=== PATIENT | female | born 1955 | race Caucasian/White ===

== ENCOUNTER → 2020-08-01 08:16 | Outpatient (CLI) | payer MEDICARE, OTHER, SELFPAY ==
[2020-08-01 19:22] LABS: SARS-CoV-2 RNA PCR Negative
== END ==
PROVIDERS: Visit Provider Obstetrics & Gynecology
DX: Z01.812 Encounter for preprocedural laboratory examination (principal); Z20.822 Contact with and (suspected) exposure to COVID-19
CPT/HCPCS: C9803; U0003; U0005

== ENCOUNTER 2020-08-01 09:27 | Outpatient (CLI) | payer MEDICARE, OTHER, SELFPAY ==
[2020-08-01 10:02] LABS: Hematocrit 39.5 % (37.0-47.0); Hemoglobin 12.9 g/dL (12.0-15.0)
[2020-08-01 10:11] LABS: Anion Gap 4 mmol/L (8-16); Blood Urea Nitrogen 20 mg/dL (7-17); Calcium 9.1 mg/dL (8.4-10.2); Carbon Dioxide 29 mmol/L (22-30); Chloride 104 mmol/L (98-107); Estimated Glomerular Filt Rate > 60; Glucose 92 mg/dL (65-105); Potassium 3.8 mmol/L (3.4-5.0); Sodium 137 mmol/L (137-145)
== END 2020-08-01 09:28 | disposition home or self-care (01) ==
LOC: ANHSURGERY 09:31
PROVIDERS: Anesthesiology; PCP Internal Medicine; Visit Provider Obstetrics & Gynecology
DX: Z01.812 Encounter for preprocedural laboratory examination (principal); N95.0 Postmenopausal bleeding; I10 Essential (primary) hypertension
CPT/HCPCS: 36415; 80048; 85014; 85018; C9803; U0003; U0005

== ENCOUNTER 2020-08-04 01:43 | Day surgery (SDC) | payer MEDICARE, OTHER, SELFPAY ==
[2020-07-28 14:52] VITALS: BMI 29.2
--- NOTE | 2020-07-29 13:21 | PM.IMHP ---
H&P: HPI History of Present Illness Date/Time: 07/29/20 13:21 a 75-year-old 1 who is postmenopausal admitted for hysteroscopy and dilatation and curettage. She had some postmenopausal bleeding. She received the [employer] handout entitled hysteroscopy as well as dilatation and curettage. She had all questions answered. She asked to proceed Chief Complaint: postmenopausal bleeding Review of Systems Review of Systems: All systems reviewed & are unremarkable except as noted in HPI and below PMFSH Social History Social History Smoking status: Never smoker Alcohol intake: current Drinks per week: 3 Spiritual care concerns: No Meds Home Medications and Allergies Home Medications Medication Instructions Recorded Confirmed Type cholecalciferol (vitamin D3) 50 mcg PO DAILY 07/28/20 07/28/20 History fexofenadine-pseudoephedrine 1 tablet PO QAM 07/28/20 07/28/20 History [Maria L-D 24 Hour] hydrochlorothiazide 12.5 mg PO DAILY 07/28/20 07/28/20 History magnesium 250 mg PO DAILY 07/28/20 07/28/20 History omeprazole 20 mg PO DAILY 07/28/20 07/28/20 History valsartan 160 mg PO DAILY 07/28/20 07/28/20 History venlafaxine 75 mg PO QAM 07/28/20 07/28/20 History Allergies Allergy/AdvReac Type Severity Reaction Status Date / Time latex Allergy Rash Verified 07/28/20 14:34 Penicillins Allergy Rash Verified 07/28/20 14:33 Sulfa (Sulfonamide Allergy Nausea Verified 07/28/20 14:34 Antibiotics) Exam Const: General: no acute distress Eyes: General: appearance normal, both eyes and all related structures Neck: Neck: supple and no JVD Thyroid: thyroid normal Resp: Effort & Inspection: normal respiratory effort Auscultation: clear to auscultation bilaterally Cardio: Rate: regular rate Rhythm: regular rhythm GI: Inspection: non-distended GI Palp: Yes Soft to palpation, No Tenderness to palpation present (GI) and No Guarding due to palpation present (GI) Auscultation: normal bowel sounds : External Female Exam: normal external appearance Speculum Exam - Vagina: normal appearance of the vagina Speculum Exam - Cervix: normal appearance of the cervix Bimanual exam- vagina & uterus: uterine size normal Bimanual Exam- Adnexa, other: normal adnexae Skin: General skin exam: no rashes or lesions noted Extrem: General: normal to inspection and no edema Psych: Mental Status: mental status grossly normal Affect: normal affect Assessment and Plan Additional Plan impression: Postmenopausal bleeding Plan: Hysteroscopy / dilatation and curettage
--- NOTE | 2020-08-04 06:36 | WPDHPUPDATE1 ---
History and Physical Update Update Date/Time: 08/04/20 06:36 History and Physical has been reviewed, including an updated exam of the patient. There are NO changes in the patient's condition. Risks, benefits, and alternatives have been discussed and questions answered. Patient agrees to proceed with procedure.
[2020-08-04 07:35] VITALS: BP 119/84; PULSE 66; RESP 20; TEMP 36.3; O2SAT 98
--- NOTE | 2020-08-04 07:52 | WPDANESEPPF ---
Anes - Initial Pre Proc Eval Procedure: Operation Date: 08/04/20 09:15 Proposed Procedures p Hysteroscopy Dilation and Curettage - Charles Bae MD Date/Time: 08/04/20 07:52 Surgeon: Charles Bae MD Pre Op Diagnosis: postmenopausal bleeding Patient Data Age: 64 Gender: F Height: 1.63 m Weight: 77.2 kg Allergies Allergy/AdvReac Type Severity Reaction Status Date / Time latex AdvReac Mild Rash Verified 08/04/20 07:33 Penicillins AdvReac Mild RASH A Verified 08/04/20 07:33 CHILD Sulfa (Sulfonamide AdvReac Mild Nausea Verified 08/04/20 07:33 Antibiotics) Home Medications Medication Instructions Recorded Confirmed Type cholecalciferol (vitamin D3) 50 mcg PO DAILY 07/28/20 08/04/20 History fexofenadine-pseudoephedrine 1 tablet PO QAM 07/28/20 08/04/20 History [Maria L-D 24 Hour] hydrochlorothiazide 12.5 mg PO DAILY 07/28/20 08/04/20 History magnesium 250 mg PO DAILY 07/28/20 08/04/20 History omeprazole 20 mg PO DAILY 07/28/20 08/04/20 History valsartan 160 mg PO DAILY 07/28/20 08/04/20 History venlafaxine 75 mg PO QAM 07/28/20 08/04/20 History hydrocodone-acetaminophen 1 tablet PO Q4H PRN #20 tablet 08/04/20 Rx Patient hx anesthesia problems: none Family hx anesthesia problems: none PMFSH Past Medical History Medical History (Updated 08/04/20 @ 08:23 by Luca Aquino DO) Enlarged aorta thoracic - monitoring - currently 4.5 cm GERD (gastroesophageal reflux disease) Hypertension PONV (postoperative nausea and vomiting) Surgical History Surgical History (Updated 08/04/20 @ 07:53 by Luca Aquino DO) History of cholecystectomy S/P Liliana fundoplication (with gastrostomy tube placement) Social History Social History Smoking status: Never smoker Alcohol intake: current Drinks per week: 3 Living arrangements: alone Spiritual care concerns: No Anes - Eval Final PreProcedure Day of Procedure 08/04/20 07:52 Patient weight: overweight Heart: regular rate and rhythm Lungs: clear to auscultation and normal air movement Airway: Mallampati scale class III Neurological: alert and oriented Last oral intake: >/= 8 hours ASA classification: III Emergent: no Anesthetic plan: proceed Anesthesia type and monitoring: general GIVS and standard monitoring Informed Consent: The patient's anesthetic plan and its attendant risks and benefits were discussed with the patient/family/POA. Questions were solicited and answers provided to the satisfaction of the patient/family/POA.
[2020-08-04] MEDS: ACETAMINOPHEN 500 MG TABLET 1000 MG PO (07:58)
[2020-08-04] MEDS: LACTATED RINGERS 1,000 ML 30 ML IV CONT (08:00)
[2020-08-04] MEDS: KETOROLAC 30 MG/ML VIAL (*BKC) IV PUSH (09:37)
--- NOTE | 2020-08-04 09:38 | PM.PROC ---
Procedure Note - Detailed Date of procedure: 08/04/20 Pre-op diagnosis: postmenopausal bleeding Surgeon: Charles Bae MD Postop diagnosis: Postmenopausal bleeding Procedure: Hysteroscopy/polypectomy/dilatation curettage Anesthesia: IV sedation and paracervical block EBL: 5cc Findings: Benign-appearing endometrium with benign endometrial polyp Complications: None Description of procedure: The patient was prepped draped in the normal sterile fashion placed in the dorsal lithotomy position. Under excellent IV sedation weighted speculum was placed in posterior fornix of vagina. Anterior lip of the cervix was grasped with a single-tooth tenaculum and 2.5cc of 1% xylocaine anesthesia placed at 2, 4, 8, 10:00 a.m. on the cervix. Uterus sounded to 8cm. Serial dilatation with fragmented dilators performed followed by passage of the 5mm visualizing hysteroscope. Normal saline was used as visualizing medium. Some benign-appearing polypoid lesions were seen and these were removed piecemeal with polyp forceps. The uterus was then scraped over the entire 360? until a good grating sound was heard. When no further tissue could be obtained the it procedure was terminated. All sponge, needle, instrument counts were correct. There were no immediate complications
[2020-08-04 09:43] VITALS: BP 143/94; PULSE 80; RESP 16; O2SAT 94
[2020-08-04 10:10] VITALS: BP 123/78; PULSE 68; RESP 16; O2SAT 97
[2020-08-04] MEDS: oxyCODONE HCL (*CRX) 5 MG TAB IR PO (10:24)
[2020-08-04 10:40] VITALS: BP 130/76; PULSE 60; RESP 16
[2020-08-04 11:00] VITALS: BP 107/66; PULSE 66; RESP 16
== END 2020-08-04 11:07 | disposition home or self-care (01) ==
PROVIDERS: PCP Internal Medicine; Visit Provider Obstetrics & Gynecology
PROC: 0U5B8ZZ Destruction of Endometrium, Via Natural or Artificial Opening Endoscopic (ICD-10-PCS; CPT 58563; principal; 2020-08-04 09:15)
DX: N95.0 Postmenopausal bleeding (principal); N84.0 Polyp of corpus uteri; I10 Essential (primary) hypertension; K21.9 Gastro-esophageal reflux disease without esophagitis; I71.2 Thoracic aortic aneurysm, without rupture
CPT/HCPCS: 58558; 88305; A9270; J1885; J2250; J2405; J2704; J3010; J7030; J7120

== ENCOUNTER 2020-11-25 13:59 | Outpatient (CLI) | payer MEDICARE, OTHER, SELFPAY ==
--- NOTE | ~2020-11-25 | CT_ITS ---
EXAMINATION: CT abdomen pelvis wo/w con DATE: 11/25/2020 14:48 INDICATION: Left kidney mass, hematuria TECHNIQUE: Computed tomography (CT) of the abdomen was performed without intravenous contrast. CT of the abdomen and pelvis was then performed with a total of 100 mL Omnipaque 350 intravenous contrast. The dose-length product (DLP) was 967.12 mGy-cm. Automated exposure control and iterative reconstruct ion technique were employed. COMPARISON: None FINDINGS: Minimal dependent atelectasis is present in the lung bases. The heart size is normal. There is dilation of the ascending aorta. Calcified coronary artery atherosclerosis is noted. The gallblad xander is surgically absent. There is mild enlargement of the common bile duct and central intrahepatic ducts which is likely due to post cholecystectomy state. The liver, spleen, pancreas, and adrenal gla nds are normal. The left kidney mass is identified. There is a 10 mm round mass in the right kidney l ower pole which is intermediate attenuation on postcontrast images. A smaller 9 mm lesion is seen in the right mid kidney, also intermediate attenuation after contrast administration. No stones are iden tified in the kidneys, ureters, or bladder. There is no hydronephrosis or hydroureter. There is a lar ge diverticulum of the right posterolateral bladder wall. No pathologically enlarged abdominal or pel shweta lymph nodes are identified. There is no free intraperitoneal gas or evidence of bowel obstruction . There is severe lumbar spondylosis. IMPRESSION: 1. Small right kidney masses which could reflect proteinaceous cysts versus small neoplasms. Follow-u p CT or MRI without and with contrast in 6-12 months is recommended. Reviewed, dictated and finalized at location A. IMPRESSION: 1. Small right kidney masses which could reflect proteinaceous cysts versus sma ll neoplasms. Follow-up CT or MRI without and with contrast in 6-12 months is r ecommended.
--- NOTE | ~2020-11-25 | XR_ITS ---
EXAMINATION: XR abdomen/kub 1V INDICATION: Left kidney stone TECHNIQUE: Supine views of the abdomen were obtained on 2 radiographs. COMPARISON: None FINDINGS: No urolithiasis identified. There is dextroscoliosis and severe spondylosis of the lumbar s pine. Cholecystectomy clips are noted. The bowel gas pattern is normal. IMPRESSION: 1. No urolithiasis identified. Reviewed, dictated and finalized at location A.
[2020-11-25 14:38] LABS: Estimated Glomerular Filt Rate > 60
== END 2020-11-25 14:00 | disposition home or self-care (01) ==
PROVIDERS: PCP Internal Medicine; Visit Provider Nurse Practitioner Adult Health
DX: N28.89 Other specified disorders of kidney and ureter (principal)
CPT/HCPCS: 74018; 74178; Q9967

== ENCOUNTER 2021-05-22 09:31 | Outpatient (CLI) | payer MEDICARE, OTHER, SELFPAY ==
--- NOTE | ~2021-05-22 | MR_ITS ---
EXAMINATION: MR abdomen wo/w con DATE: 05/22/2021 11:00 INDICATION: Left kidney mass. Hematuria. TECHNIQUE: Magnetic resonance imaging (MRI) of the abdomen was performed without and with 15 mL Multi Jn intravenous contrast. Sequences included coronal T2-weighted FS FSE, coronal and axial FIESTA F S, coronal LAVA-flex, axial LAVA, axial T2-weighted FSE, axial T1-weighted dual-echo FSPGR, axial STI R FSE, and axial DWI. Postcontrast sequences included coronal LAVA-flex and a time course of axial LA VA. COMPARISON: CT abdomen and pelvis 11/25/2020 FINDINGS: The liver is normal. The gallbladder is absent. The spleen, pancreas, and adrenal glands are normal. There are cysts in the kidneys measuring up to 12 mm on the right. There is a small sliding hiatal he rnia. There are no dilated loops of bowel. There are no pathologically enlarged lymph nodes. There is no free intraperitoneal fluid. Again seen are foci of old fat necrosis in the greater omentum. IMPRESSION: 1. Benign cysts in the kidneys. Reviewed, dictated and finalized at location A. RVISOR DRAWING
[2021-05-22 10:58] LABS: Estimated Glomerular Filt Rate > 60
== END 2021-05-22 09:32 | disposition home or self-care (01) ==
PROVIDERS: PCP Internal Medicine; Visit Provider Urology
DX: N28.81 Hypertrophy of kidney (principal); K44.9 Diaphragmatic hernia without obstruction or gangrene
CPT/HCPCS: 74183; A9577